=== PATIENT | male | born 1990 | race Hispanic/Latino ===

== ENCOUNTER 2018-09-20 15:32 | Emergency (ER) | payer OTHER ==
[2018-09-20 15:39] VITALS: BMI 30.4
[2018-09-20] MEDS ORDERED: Sodium Chloride 0.9% 1,000 ML IV STA (16:03)
--- NOTE | 2018-09-20 16:08 | ED PDOC ---
Arrival/HPI - General Chief Complaint: Chest Pain Historian: Patient - History of Present Illness Narrative History of Present Illness (Text): 27 year old male, with no significant past medical history, who presents to the Emergency department complaining of intermittent chest pain described as burning/pressure for the past 3-4 days, with sudden onset. Patient notes similar symptoms in the past couple of months which was self-limited in nature without use of medication. 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 Patient notes he has been having headaches for the past few days, and says he took Aspirin with significant relief. Patient denies any noticeable correlation between certain foods and chest pain. Patient denies any fevers, chills, pain to the touch or with movement, or any other complaints. Time/Duration: > week (Patient notes onset as past 3-4 days ) Symptom Onset: Sudden Symptom Course: Unchanged Quality: Pressure (pt describes chest pain as pressure), Burning (pt describes chest pain as burning) Severity Level: Mild Activities at Onset: Rest Context: Home, Work Past Medical History - Provider Review Nursing Documentation Reviewed: Yes - Travel History Have you recently traveled outside [place] w/in the past 3 mons?: No - Psychiatric Hx Substance Use: No Family/Social History - Physician Review Nursing Documentation Reviewed: Yes Family/Social History: No Known Family HX Smoking Status: Never Smoked Hx Alcohol Use: No Hx Substance Use: No Allergies/Home Meds Allergies/Adverse Reactions: Allergies No Known Allergies Allergy (Verified 09/20/18 15:39) Review of Systems - Physician Review All systems were reviewed & negative as marked: Yes - Review of Systems Constitutional: Normal. absent: Fevers, Night Sweats Respiratory: SOB (Pt notes shortness of breath caused by work ). absent: Normal Cardiovascular: Chest Pain (Pt notes intermittent chest pain for past 3-4 days ). absent: Normal Neurological: Headache (Pt states he has been having headaches for the past few days ). absent: Normal Physical Exam Vital Signs Reviewed: Yes Temperature: Afebrile Blood Pressure: Normal Pulse: Regular Respiratory Rate: Normal Appearance: Positive for: Well-Appearing, Non-Toxic Pain Distress: Mild Mental Status: Positive for: Alert and Oriented X 3 - Systems Exam Head: Present: Atraumatic, Normocephalic Pupils: Present: PERRL Extroacular Muscles: Present: EOMI Conjunctiva: Present: Normal Mouth: Present: Moist Mucous Membranes Neck: Present: Normal Range of Motion Respiratory/Chest: Present: Clear to Auscultation, Good Air Exchange Cardiovascular: Present: Regular Rate and Rhythm, Normal S1, S2 Abdomen: Present: Normal Bowel Sounds Upper Extremity: Present: Normal Inspection, Neurovascularly Intact, Capillary Refill < 2s Lower Extremity: Present: Normal Inspection, Neurovascularly Intact, Capillary Refill < 2 s Neurological: Present: GCS=15, CN II-XII Intact, Speech Normal Skin: Present: Warm, Dry, Normal Color Psychiatric: Present: Alert, Oriented x 3, Normal Insight, Normal Concentration Medical Decision Making ED Course and Treatment: 09/20/18 16:05 Impression 27 year old M w/ intermittent chest pain HEART Score: 1 PERC Negative Differential Diagnosis Includes But Is Not Limited To: --Pericarditis/Myocarditis --PE --ACS Plan --Labs --Chest X-ray --NSS --Toradol --EKG --Reassess & disposition Progress Notes 09/20/18 18:20 Labs reviewed with troponin WNL as well as D-dimer. Discussion with patient for appropriate cardiology follow up who agrees. He reports improvement in chest pain and attributes symptoms to anxiety. He states he will follow up with his PCP. He is stable for discharge. - Lab Interpretations Lab Results: 09/20/18 16:11 09/20/18 16:11 Lab Results 09/20/18 16:11: Sodium 139, Potassium 4.6, Chloride 102, Carbon Dioxide 28, Anion Gap 13, BUN 20, Creatinine 1.1, Est GFR ( Amer) > 60, Est GFR (Non- Af Amer) > 60, Random Glucose 93, Calcium 9.8, Magnesium 2.0, Total Bilirubin 0.6, AST 27, ALT 27, Alkaline Phosphatase 61, Troponin I < 0.01, Total Protein 8.0, Albumin 4.8, Globulin 3.2, Albumin/Globulin Ratio 1.5 09/20/18 16:11: WBC 5.3, RBC 5.42, Hgb 15.2, Hct 43.0, MCV 79.3 L, MCH 28.0, MCHC 35.3, RDW 13.1, Plt Count 163, MPV 9.6, Gran % 58.1, Lymph % (Auto) 32.2, Thayer % (Auto) 7.0 H, Eos % (Auto) 2.1, Baso % (Auto) 0.6, Gran # 3.07, Lymph # (Auto) 1.7, Thayer # (Auto) 0.4, Eos # (Auto) 0.1, Baso # (Auto) 0.03, ESR 2 I have reviewed the lab results: Yes - RAD Interpretation Narrative RAD Interpretations (Text): X-ray of chest reviewed by radiologist, shows: Dictator : Denise Caraballo MD Report Date : 09/20/2018 16:54:11 IMPRESSION: Hypoinflation. Radiology Orders: 09/20/18 16:02 CHEST PORTABLE [RAD] Stat Die Cutter Apprentice: Radiologist - EKG Interpretation EKG Interpretation (Text): NSR at 73 bpm. Sinus arrhythmia. No ST elevations. No T wave inversions. Interpreted by ED Physician: Yes Type: 12 lead EKG - Medication Orders Current Medication Orders: Sodium Chloride (Sodium Chloride 0.9%) 1,000 mls @ 999 mls/hr IV .Q1H1M STA Stop: 09/20/18 17:03 - Scribe Statement The provider has reviewed the documentation as recorded by the Scribe Lindsey Dai All medical record entries made by the Scribe were at my direction and personally dictated by me. I have reviewed the chart and agree that the record accurately reflects my personal performance of the history, physical exam, medical decision making, and the department course for this patient. I have also personally directed, reviewed, and agree with the discharge instructions and disposition. Disposition/Present on Arrival - Present on Arrival Any Indicators Present on Arrival: No History of DVT/PE: No History of Uncontrolled Diabetes: No Urinary Catheter: No History of Decub. Ulcer: No History Surgical Site Infection Following: None - Disposition Have Diagnosis and Disposition been Completed?: Yes Diagnosis: Chest pain, Anxiety Disposition: HOME/ ROUTINE Disposition Time: 18:23 Patient Plan: Discharge Condition: IMPROVED Discharge Instructions (ExitCare): Anxiety, Adult (DC), Chest Pain (ED) Print Language: [place] Additional Instructions: All medical record entries made by the Scribe were at my direction and personally dictated by me. I have reviewed the chart and agree that the record accurately reflects my personal performance of the history, physical exam, medical decision making, and the department course for this patient. I have also personally directed, reviewed, and agree with the discharge instructions and disposition. Prescriptions: RX: Ibuprofen [Motrin Tab] 600 mg PO Q6H PRN 6 Days #24 tab PRN Reason: Pain, Moderate (4-7) Referrals: Frida Gong MD [Medical Doctor] - Follow up with primary [facility] [Outside] - Follow up with primary Forms: [employer] ([place]), WORK NOTE
[2018-09-20 16:12] VITALS: RESP 18; TEMP 98.2; O2SAT 99
[2018-09-20 16:40] LABS: ALB/GLOB RATIO 1.5 (1.1-1.8); ALBUMIN 4.8 g/dL (3.0-4.8); BLOOD UREA NITROGEN 20 mg/dL (7-21); CALCIUM 9.8 mg/dL (8.4-10.5); GFR NON-AFRICAN AMERICAN > 60
[2018-09-20 16:43] LABS: BASO # 0.03 K/mm3 (0.0-2.0); BASO % 0.6 % (0.0-3.0); EOS # 0.1 (0.0-0.7); EOS % 2.1 % (1.5-5.0); GRAN # 3.07 (1.4-6.5); GRAN % 58.1 % (50.0-68.0); HEMOGLOBIN 15.2 g/dL (14.0-18.0); LYMPH # 1.7 (1.2-3.4); LYMPH % 32.2 % (22.0-35.0); MEAN CELL VOLUME 79.3 fl (80.0-105.0); MEAN CORPUSCULAR HGB CONC 35.3 g/dl (31.0-37.0); MEAN PLATELET VOLUME 9.6 fl (7.0-11.0); MONO # 0.4 (0.1-0.6); RBC 5.42 10^6/uL (3.5-6.1); RED CELL DISTRIBUTION WIDTH 13.1 % (11.5-14.5); WHITE BLOOD COUNT 5.3 10^3/uL (4.5-11.0)
[2018-09-20 16:51] LABS: TROPONIN I < 0.01 ng/mL
--- NOTE | 2018-09-20 16:57 | RAD ---
HISTORY: chest pain COMPARISON: No prior. TECHNIQUE: Chest, one view. FINDINGS: Examination limited by habitus and hypoinflation. LUNGS: No focal consolidation. Please note that chest x-ray has limited sensitivity for the detection of pulmonary masses. PLEURA: No significant pleural effusion identified. No definite pneumothorax . CARDIOVASCULAR: Heart size appears top normal. No significant atherosclerotic calcification present. OSSEOUS STRUCTURES: No acute osseous abnormality identified. VISUALIZED UPPER ABDOMEN: Mild elevation of the right hemidiaphragm. OTHER FINDINGS: None. IMPRESSION: Hypoinflation.
[2018-09-20 17:00] LABS: ALT/SGPT 27 U/L (7-56); AST/SGOT 27 U/L (17-59)
[2018-09-20 17:31] VITALS: BP 148/80; PULSE 71
--- NOTE | 2018-09-21 13:31 | CARD ---
APPROVED REPORT Date of service: 09/20/2018 EKG Measurement Heart [id number] <Conclusion> Sinus rhythm with marked sinus arrhythmia Otherwise normal ECG
== END 2018-09-20 18:26 | disposition home or self-care (01) ==
LOC: ED 15:32
DX: R07.9 Chest pain, unspecified (principal); F41.9 Anxiety disorder, unspecified
CPT/HCPCS: 71045; 80053; 83735; 84484; 85025; 85651; 93005; 96361; 96374; 99283; J1885; J7030